=== PATIENT | female | born 2000 | race Caucasian/White ===

== ENCOUNTER 2023-02-24 17:03 | Emergency (ER) | payer OTHER ==
[~2023-02-24] VITALS: Ht 167 cm; Wt 65.7 kg
[2023-02-24] MEDS ORDERED: fentaNYL INJ 100 MCG/2 ML AMP IVP STA (17:33)
[2023-02-24] MEDS ORDERED: NS IV 1000 ML 1,000 ML IV STA (17:33)
--- NOTE | 2023-02-24 17:40 | ED Abdominal Pain ---
General Chief Complaint: Abdominal/GI Problems Stated Complaint: CHRONS DISEASE|FLARE UP Nursing Triage Note: PT PRESENTS TO ED VIA POV FROM HOME WITH COMPLAINTS OF L SIDED UPPER ABDOMINAL PAIN AND VOMITING X 1 1/2 WEEKS. PT REPORTS SHE HAS HAD ULCERS IN THE PAST AND THIS FEELS SIMILAR. Source of Information: Patient Exam Limitations: No Limitations History of Present Illness Date Seen by Provider: Feb 24, 2023 Time Seen by Provider: 17:38 Initial Comments Patient is a 22-year-old female with a history of Crohn's disease who presents the ED for abdominal pain, vomiting and diarrhea. She states about a week and a half ago started developing left upper abdominal pain. Described as sharp pain and constant. She reports vomiting with eating and several bouts of loose stool daily. Denies any blood or mucousy stool. History of Crohn's disease. She was on Humira until 2019 and stopped secondary to COVID. She is not currently following up with any type of provider such as GI specialist for her Crohn's. She reports history of ulcers she believes in her colon. Patient with a history of polyps in 2017 was diagnosed with Crohn's in 2010. No previous abdominal surgeries. Has been using a heating pad but denies of any pain medication. Currently on Keppra for epilepsy. Last episode was 2019. She denies fever, chills, bodyaches, dysuria, hematuria. Finished her menstrual cycle 3 days ago. Allergies and Home Medications Allergies Coded Allergies: No Known Drug Allergies (Unverified , 02/24/23) Patient Home Medication List Home Medication List Reviewed: Yes Metronidazole (Metronidazole) 500 Mg Tablet, 500 MG PO Q8H Prescribed by: EMILY MILTON on 02/24/231903 Ondansetron (Ondansetron Odt) 4 Mg Tab.rapdis, 4 MG SL Q4H PRN for NAUSEA/VOMITING Prescribed by: EMILY MILTON on 02/24/231903 Pantoprazole Sodium (Protonix) 40 Mg Tablet.dr, 40 MG PO DAILY Prescribed by: EMILY MILTON on 02/24/231903 Prednisone (Prednisone) 20 Mg Tab, 40 MG PO DAILY Prescribed by: EMILY MILTON on 02/24/231903 Review of Systems Review of Systems Constitutional: No chills, No diaphoresis, No fever, No malaise, No weakness EENTM: No Eye Pain Respiratory: Denies Cough Cardiovascular: Denies Chest Pain Gastrointestinal: Abdominal Pain; Denies Blood Streaked Stools; Nausea, Vomiting Genitourinary: Denies Burning, Denies Discharge Musculoskeletal: No back pain, No joint pain Skin: No change in color, No change in hair/nails Psychiatric/Neurological: Denies Anxiety, Denies Depressed All Other Systems Reviewed Negative Unless Noted: Yes Past Ltjwfbl-Olahpp-Lmcyfw Hx Patient Social History Tobacco Use?: No Use of E-Cig and/or Vaping dev: Yes E-Cig or Vaping type used: Nicotine Use of E-Cig and/or Vaping Chandana: Current Everyday User Substance use?: Yes Substance type: Marijuana Substance frequency: Couple times a week Alcohol Use?: Yes Alcohol Frequency: Once in a while Pt feels they are or have been: No Past Medical History Surgery/Hospitalization HX: CHRONS, EPILEPSY Physical Exam Vital Signs Vital Signs - First Documented 02/24/23 17:13 Temp 36.6 Pulse 101 Resp 16 B/P (MAP) 121/68 (85) Pulse Ox 98 Capillary Refill : Less Than 3 Seconds Height/Weight/BMI Height: '" Weight: lbs. oz. kg; 23.00 BMI Method: General Appearance: WD/WN, no apparent distress HEENT: PERRL/EOMI, normal ENT inspection, TMs normal, pharynx normal Neck: non-tender, full range of motion, supple, normal inspection Respiratory: chest non-tender, lungs clear, normal breath sounds, no respiratory distress, no accessory muscle use Cardiovascular: regular rate, rhythm, no edema, no gallop, no JVD Gastrointestinal: normal bowel sounds, soft, no organomegaly, no pulsatile mass, tenderness (Left upper quadrant tenderness) Extremities: normal range of motion, non-tender, normal inspection, no pedal edema Back: normal inspection, no CVA tenderness Pelvic: normal external exam Neurologic/Psychiatric: 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, no motor/sensory deficits, alert, normal mood/affect, oriented x 3 Skin: normal color, warm/dry Lymphatic: no adenopathy Progress/Results/Core Measures Results/Orders Lab Results Laboratory Tests Test 02/24/23 18:01 02/24/23 18:17 Range/Units White Blood Count 10.7 4.3-11.0 10^3/uL Red Blood Count 4.29 3.80-5.11 10^6/uL Hemoglobin 12.9 11.5-16.0 g/dL Hematocrit 39 35-52 % Mean Corpuscular Volume 90 80-99 fL Mean Corpuscular Hemoglobin 30 25-34 pg Mean Corpuscular Hemoglobin Concent 33 32-36 g/dL Red Cell Distribution Width 12.6 10.0-14.5 % Platelet Count 364 130-400 10^3/uL Mean Platelet Volume 9.8 9.0-12.2 fL Immature Granulocyte % (Auto) 0 % Neutrophils (%) (Auto) 51 42-75 % Lymphocytes (%) (Auto) 39 12-44 % Monocytes (%) (Auto) 8 0-12 % Eosinophils (%) (Auto) 2 0-10 % Basophils (%) (Auto) 1 0-10 % Neutrophils # (Auto) 5.5 1.8-7.8 10^3/uL Lymphocytes # (Auto) 4.2 H 1.0-4.0 10^3/uL Monocytes # (Auto) 0.8 0.0-1.0 10^3/uL Eosinophils # (Auto) 0.2 0.0-0.3 10^3/uL Basophils # (Auto) 0.1 0.0-0.1 10^3/uL Immature Granulocyte # (Auto) 0.0 0.0-0.1 10^3/uL Sodium Level 139 135-145 MMOL/L Potassium Level 3.3 L 3.6-5.0 MMOL/L Chloride Level 107 98-107 MMOL/L Carbon Dioxide Level 22 21-32 MMOL/L Anion Gap 10 5-14 MMOL/L Blood Urea Nitrogen 7 7-18 MG/DL Creatinine 0.77 0.60-1.30 MG/DL Estimat Glomerular Filtration Rate 111 BUN/Creatinine Ratio 9 Glucose Level 98 70-105 MG/DL Calcium Level 9.5 8.5-10.1 MG/DL Corrected Calcium 9.1 8.5-10.1 MG/DL Total Bilirubin 0.7 0.1-1.0 MG/DL Aspartate Amino Transf (AST/SGOT) 10 5-34 U/L Alanine Aminotransferase (ALT/SGPT) 10 0-55 U/L Alkaline Phosphatase 55 40-136 U/L Total Protein 7.0 6.4-8.2 GM/DL Albumin 4.5 3.2-4.5 GM/DL Lipase 24 8-78 U/L Urine Color ORANGE Urine Clarity CLOUDY Urine pH 6.0 5-9 Urine Specific [place] 1.025 H 1.016-1.022 Urine Protein NEGATIVE NEGATIVE Urine Glucose (UA) NEGATIVE NEGATIVE Urine Ketones NEGATIVE NEGATIVE Urine Nitrite NEGATIVE NEGATIVE Urine Bilirubin 1+ H NEGATIVE Urine Urobilinogen 0.2 < = 1.0 MG/DL Urine Leukocyte Esterase NEGATIVE NEGATIVE Urine RBC (Auto) NEGATIVE NEGATIVE Urine RBC NONE /HPF Urine WBC 2-5 /HPF Urine Squamous Epithelial Cells 2-5 /HPF Urine Crystals NONE /LPF Urine Bacteria FEW H /HPF Urine Casts NONE /LPF Urine Mucus MODERATE H /LPF Urine Culture Indicated YES Urine Test NEGATIVE NEGATIVE My Orders Orders - KEMAR GILBERT Cbc With Automated Diff (02/24/23 17:33) Comprehensive Metabolic Panel (02/24/23 17:33) Lipase (02/24/23 17:33) Ns Iv 1000 Ml (Sodium Chloride 0.9%) (02/24/23 17:33) Ondansetron Injection (Zofran Injectio (02/24/23 17:45) Fentanyl Inj (Sublimaze Injection) (02/24/23 17:33) Ct Abdomen/Pelvis W (02/24/23 17:33) Methylprednisolone Sod Succ (Solu-Medrol (02/24/23 17:45) Ua Culture If Indicated (02/24/23 17:50) Hcg,Qualitative Urine (02/24/23 17:50) Urine Culture (02/24/23 18:17) Iohexol Injection (Omnipaque 350 Mg/Ml 1 (02/24/23 18:45) Ns (Ivpb) (Sodium Chloride 0.9% Ivpb Bag (02/24/23 18:45) Potassium Chloride (Tablet) (K Dur Table (02/24/23 19:15) Potassium Chloride (Tablet) (K Dur Table (02/24/23 19:13) Medications Given in ED Current Medications Medications Dose Ordered Sig/Jesus Route Start Time Stop Time Status Last Admin Dose Admin Iohexol 100 ml ONCE ONCE IV 02/24/23 18:45 02/24/23 18:46 DC 02/24/23 18:42 75 ML Methylprednisolone Sodium Succinate 62.5 mg ONCE ONCE IVP 02/24/23 17:45 02/24/23 17:46 DC 02/24/23 17:53 62.5 MG Ondansetron HCl 4 mg ONCE ONCE IVP 02/24/23 17:45 02/24/23 17:46 DC 02/24/23 17:54 4 MG Potassium Chloride 20 meq ONCE ONCE PO 02/24/23 19:15 02/24/23 19:16 DC 02/24/23 19:16 20 MEQ Sodium Chloride 100 ml ONCE ONCE IV 02/24/23 18:45 02/24/23 18:46 DC 02/24/23 18:42 80 ML Vital Signs/I&O 02/24/23 02/24/23 17:13 19:20 Temp 36.6 Pulse 101 58 Resp 16 16 B/P (MAP) 121/68 (85) 115/58 Pulse Ox 98 98 Blood Pressure Mean: 85 Departure Communication (PCP) Patient is a 22-year-old female presents ED with left upper abdominal pain with vomiting and diarrhea for the past week and a half. History of Crohn's. Not currently on any medication. Patient on arrival no acute distress. She is tender in her left upper quadrant. Negative right upper quadrant tenderness. History of ulcers according to patient. She has been on Humira in the past but stopped in 2019 because of covid. Does not follow-up with a GI specialist at this time. Due to current complaint CBC, CMP, lipase, urinalysis, CT abdomen and pelvis. Concerning for Crohn's flare, gastritis, peptic ulcer disease, colitis, acute cholecystitis. CBC, CMP grossly unremarkable. Potassium 3.3. Patient was given oral potassium 20 mill equivalent. patient urinalysis negative for infection or . She was given dose of fentanyl with improvement of pain. CT abdomen pelvis negative for acute abnormality. She is able to tolerate some fluid. suspicious for gastritis versus ulcer of the stomach with location of pain. However due to the diarrhea would be concerning for Crohn's. Could have some form of mild Crohn's flare but no changes noted on CT scan. She states this feels very similar to when she had an ulcer and Crohn's flare up. She did get Solu-Medrol 60 mg here in the ED. We will taper 40 mg over the next 4 days. Discussed Flagyl 500 mg every 8 hours for the next 10 days that would help for remission if this is the case and Protonix for potential ulcer. Zofran for nausea. Discussed clear liquid diet at this time. Patient does not appear toxic and currently pain-free. Would likely benefit with an upper EGD and colonoscopy for further evaluation. Provided Dr. Cooper general surgery to follow-up with.. Impression Primary Impression: Abdominal pain Disposition: HOME, SELF-CARE Condition: Stable Departure-Patient Inst. Decision time for Depature: 19:01 Referrals: NO,LOCAL PHYSICIAN (PCP) Primary Care Physician CECILE COOPER MD Patient Instructions: Crohn's Disease Diet Add. Discharge Instructions: Recommend liquid diet until symptoms improved. Take antibiotics and medication as prescribed. Recommend following up with general surgeon for further evaluation with scope All discharge instructions reviewed with patient and/or family. Voiced understanding. Scripts Ondansetron (Ondansetron Odt) 4 Mg Tab.rapdis 4 MG SL Q4H PRN for NAUSEA/VOMITING, #8 TAB Prov: KEMAR GILBERT 02/24/23 Pantoprazole Sodium (Protonix) 40 Mg Tablet.dr 40 MG PO DAILY, #14 TAB Prov: KEMAR GILBERT 02/24/23 Metronidazole (Metronidazole) 500 Mg Tablet 500 MG PO Q8H for 10 Days, #30 TAB Prov: KEMAR GILBERT 02/24/23 Prednisone (Prednisone) 20 Mg Tab 40 MG PO DAILY for 4 Days, #8 TAB Prov: KEMAR GILBERT 02/24/23 KEMAR GILBERT Feb 24, 2023 17:40
[2023-02-24] MEDS ORDERED: ONDANSETRON 4 MG/2 ML (SDV) Z0FRAN IVP ONE (17:45)
[2023-02-24] MEDS ORDERED: methylPREDNISolone 125 MG (Solu-MEDROL) VIAL IVP ONE (17:45)
[2023-02-24 18:07] LABS: BASOPHILS # (AUTO) 0.1 10^3/uL (0.0-0.1); BASOPHILS % (AUTO) 1 % (0-10); EOSINOPHILS # (AUTO) 0.2 10^3/uL (0.0-0.3); EOSINOPHILS % (AUTO) 2 % (0-10); HEMATOCRIT 39 % (35-52); HEMOGLOBIN 12.9 g/dL (11.5-16.0); LYMPHOCYTES # (AUTO) 4.2 10^3/uL (1.0-4.0); LYMPHOCYTES % (AUTO) 39 % (12-44); MEAN CORPUSCULAR HEMOGLOBIN 30 pg (25-34); MEAN CORPUSCULAR HGB CONC 33 g/dL (32-36); MEAN CORPUSCULAR VOLUME 90 fL (80-99); MEAN PLATELET VOLUME 9.8 fL (9.0-12.2); MONOCYTES # (AUTO) 0.8 10^3/uL (0.0-1.0); MONOCYTES % (AUTO) 8 % (0-12); NEUTROPHILS # (AUTO) 5.5 10^3/uL (1.8-7.8); NEUTROPHILS % (AUTO) 51 % (42-75); PLATELET COUNT 364 10^3/uL (130-400); WHITE BLOOD COUNT 10.7 10^3/uL (4.3-11.0)
[2023-02-24 18:17] LABS: ALBUMIN 4.5 GM/DL (3.2-4.5); POTASSIUM 3.3 MMOL/L (3.6-5.0)
[2023-02-24 18:18] LABS: CALCIUM 9.5 MG/DL (8.5-10.1)
[2023-02-24 18:20] LABS: BILIRUBIN,URINE 1+ (NEGATIVE); CLARITY,URINE CLOUDY; COLOR,URINE ORANGE; GLUCOSE, URINE (UA) NEGATIVE (NEGATIVE); KETONES,URINE NEGATIVE (NEGATIVE); LEUKOCYTE ESTERASE ,URINE NEGATIVE (NEGATIVE); NITRITE,URINE NEGATIVE (NEGATIVE); PROTEIN,URINE NEGATIVE (NEGATIVE)
[2023-02-24 18:21] LABS: BILIRUBIN,TOTAL 0.7 MG/DL (0.1-1.0)
[2023-02-24 18:23] LABS: CREATININE SERUM 0.77 MG/DL (0.60-1.30)
[2023-02-24 18:30] LABS: BACTERIA,URINE FEW /HPF
[2023-02-24] MEDS ORDERED: IOHEXOL 350 MG/ML 100 ML (OMNIPAQUE 350) VIAL IV ONE (18:45)
[2023-02-24] MEDS ORDERED: NS 100 ML (IVPB) BAG IV ONE (18:45)
--- NOTE | 2023-02-24 18:47 | Diagnostic Imaging Report ---
PROCEDURE: CT abdomen and pelvis with contrast. TECHNIQUE: Multiple contiguous axial images were obtained through the abdomen and pelvis after administration of intravenous contrast. Auto Exposure Controls were utilized during the CT exam to meet ALARA standards for radiation dose reduction. All CT scans use one or more of the following dose optimizing techniques: automated exposure control, MA and/or KvP adjustment based on patient size and exam type or iterative reconstruction. INDICATION: Left upper quadrant pain. FINDINGS: Lung bases are clear. The liver is unremarkable. Portal vein is patent. Gallbladder appears normal. Pancreas appears normal. Spleen is not enlarged. Kidneys and adrenals appear normal. Small bowel is not dilated. There is no evidence of appendicitis. Colon is unremarkable. Uterus and ovaries are unremarkable. There is no intraperitoneal free air or free fluid. IMPRESSION: No acute abnormality seen in the abdomen or pelvis. Dictated by: Dictated on workstation # [id number]
[2023-02-24] MEDS ORDERED: ONDA4TAB11 SL (19:04)
[2023-02-24] MEDS ORDERED: PANT40TA2 PO (19:04)
[2023-02-24] MEDS ORDERED: METR-145 PO (19:04)
[2023-02-24] MEDS ORDERED: PRD20T PO (19:04)
[2023-02-24] MEDS ORDERED: KCL 20 MEQ TAB (K-DUR) PO ONE ×2 (19:13→19:15)
[2023-02-24 19:20] VITALS: BP 115/58
== END 2023-02-24 19:20 | disposition home or self-care (01) ==
LOC: ER 17:06
DX: R10.12 Left upper quadrant pain (principal); R11.2 Nausea with vomiting, unspecified; R19.7 Diarrhea, unspecified; G40.909 Epilepsy, unspecified, not intractable, without status epilepticus; F17.290 Nicotine dependence, other tobacco product, uncomplicated; Z86.16 Personal history of COVID-19; Z79.899 Other long term (current) drug therapy
CPT/HCPCS: 36415; 74177; 80053; 81000; 83690; 84703; 85025; 87088

== ENCOUNTER 2023-03-11 05:35 | Outpatient (CLI) | payer OTHER ==
[~2023-03-11] VITALS: Ht 167.6 cm; Wt 62.1 kg
[~2023-03-11 05:35] MED LIST: METR-145 PO; ONDA4TAB11 SL; PANT40TA2 PO; PRD20T PO
[2023-03-12] MEDS ORDERED: LEVE750T5 PO (11:07)
== END 2023-03-12 11:11 | disposition home or self-care (01) ==
LOC: PREOP 05:35
PROVIDERS: ATTEND Surgery
DX: Z01.818 Encounter for other preprocedural examination (principal)

== ENCOUNTER 2023-03-14 14:46 | Emergency (ER) | payer OTHER ==
[~2023-03-14] VITALS: Ht 167 cm; Wt 62.9 kg
[~2023-03-14 14:46] MED LIST changes: +LEVE750T5 PO
[2023-03-14 15:09] LABS: BILIRUBIN,URINE NEGATIVE (NEGATIVE); CLARITY,URINE CLEAR; COLOR,URINE YELLOW; GLUCOSE, URINE (UA) NEGATIVE (NEGATIVE); KETONES,URINE NEGATIVE (NEGATIVE); LEUKOCYTE ESTERASE ,URINE NEGATIVE (NEGATIVE); NITRITE,URINE NEGATIVE (NEGATIVE); PROTEIN,URINE NEGATIVE (NEGATIVE)
[2023-03-14 15:21] LABS: BACTERIA,URINE MODERATE /HPF; RBC,URINE 0-2 /HPF; WBC,URINE 0-2 /HPF
[2023-03-14] MEDS ORDERED: HYOSCYAMINE 0.125 MG (LEVSIN) TAB SL ONE (15:30)
[2023-03-14] MEDS ORDERED: LACTATED RINGERS 1,000 ML IV ONE (15:30)
[2023-03-14] MEDS ORDERED: ONDANSETRON 4 MG/2 ML (SDV) Z0FRAN IVP ONE (15:30)
[2023-03-14 15:38] LABS: BASOPHILS # (AUTO) 0.1 10^3/uL (0.0-0.1); BASOPHILS % (AUTO) 1 % (0-10); EOSINOPHILS # (AUTO) 0.1 10^3/uL (0.0-0.3); EOSINOPHILS % (AUTO) 1 % (0-10); HEMATOCRIT 37 % (35-52); HEMOGLOBIN 12.5 g/dL (11.5-16.0); LYMPHOCYTES # (AUTO) 2.3 10^3/uL (1.0-4.0); LYMPHOCYTES % (AUTO) 24 % (12-44); MEAN CORPUSCULAR HEMOGLOBIN 30 pg (25-34); MEAN CORPUSCULAR HGB CONC 34 g/dL (32-36); MEAN CORPUSCULAR VOLUME 90 fL (80-99); MONOCYTES # (AUTO) 0.8 10^3/uL (0.0-1.0); MONOCYTES % (AUTO) 8 % (0-12); NEUTROPHILS # (AUTO) 6.3 10^3/uL (1.8-7.8); NEUTROPHILS % (AUTO) 66 % (42-75); PLATELET COUNT 298 10^3/uL (130-400); WHITE BLOOD COUNT 9.6 10^3/uL (4.3-11.0)
--- NOTE | 2023-03-14 15:52 | ED Abdominal Pain ---
General Chief Complaint: Abdominal/GI Problems Stated Complaint: AB PAIN Nursing Triage Note: pt presents to ed via pov from home with complaints of continued n/v/d since she was seen 2 weeks ago in ed. pt reports she has a gi scope scheduled for wednesday with dr quiles. Source of Information: Patient, Old Records Exam Limitations: No Limitations History of Present Illness Date Seen by Provider: March 14, 2023 Time Seen by Provider: 14:50 Initial Comments This 22-year-old young lady with Crohn's disease presents to the emergency room with complaints of persistent abdominal and GI issues over the past month. She has had persistently watery stools. She has not had a solid stool in many days. She has terrible abdominal cramping. She has presumed herself to have constipation or a partial bowel obstruction and has been taking laxatives. She has endoscopy scheduled with Dr. Quiles on Wednesday of this week. She has very painful gas and bloating. She denies any blood in her stool but does have increased mucus. She has accompanying nausea and vomiting. She has had sweats but denies fever. She was diagnosed with Crohn's disease in 2010. She does not currently take any maintenance medication. She rarely drinks alcohol. She vapes nicotine. She uses marijuana once or twice a month. Her last use was about 4 days ago. She was seen in this ER February 24 with a relatively unremarkable work-up. CT was negative for acute problems. She was prescribed prednisone, Flagyl, pantoprazole, and Zofran. These treatments did help but symptoms have rebounded since running out of these medications. She is not on any maintenance therapies for Crohn's disease but used to take Humira. Allergies and Home Medications Allergies Coded Allergies: No Known Drug Allergies (Unverified , 02/24/23) Patient Home Medication List Home Medication List Reviewed: Yes Hyoscyamine Sulfate (Levsin-Sl) 0.125 Mg Tab.subl, 1-2 TAB SL Q4H PRN for CRAMPS Prescribed by: AMENA HIGHTOWER on 03/14/231814 Levetiracetam (Levetiracetam) 750 Mg Tablet, 750 MG PO DAILY, (Reported) Entered as Reported by: LEONID MAX on 03/12/23 1107 Ondansetron (Ondansetron Odt) 4 Mg Tab.rapdis, 4 MG SL Q4H PRN for NAUSEA/VOMITING Prescribed by: EMILY MILTON on 02/24/231903 Ondansetron (Ondansetron Odt) 4 Mg Tab.rapdis, 4 MG SL Q4H PRN for NAUSEA/VOMITING Prescribed by: AMENA HIGHTOWER on 03/14/231814 Pantoprazole Sodium (Protonix) 40 Mg Tablet.dr, 40 MG PO DAILY Prescribed by: EMILY MILTON on 02/24/231903 Pantoprazole Sodium (Protonix) 40 Mg Tablet.dr, 40 MG PO BID Prescribed by: AMENA HIGHTOWER on 03/14/231814 Sucralfate (Carafate) 1 Gram/10 Ml Oral.susp, 1 GM PO QID Prescribed by: AMENA HIGHTOWER on 03/14/231824 Discontinued Medications Metronidazole (Metronidazole) 500 Mg Tablet, 500 MG PO Q8H Discontinued Reason: No Longer Taking Prescribed by: EMILY MILTON on 02/24/231903 Prednisone (Prednisone) 20 Mg Tab, 40 MG PO DAILY Discontinued Reason: No Longer Taking Prescribed by: EMILY MILTON on 02/24/231903 Review of Systems Review of Systems Constitutional: no symptoms reported EENTM: No Symptoms Reported Respiratory: No Symptoms Reported Cardiovascular: No Symptoms Reported Gastrointestinal: See HPI Genitourinary: No Symptoms Reported Musculoskeletal: no symptoms reported Skin: no symptoms reported Psychiatric/Neurological: No Symptoms Reported Endocrine: No Symptoms Reported Hematologic/Lymphatic: No Symptoms Reported Past Zhrdvdb-Pwhnxz-Dzgyyb Hx Patient Social History Tobacco Use?: No Use of E-Cig and/or Vaping dev: Yes E-Cig or Vaping type used: Nicotine Use of E-Cig and/or Vaping Chandana: Current Everyday User Substance use?: Yes Substance type: Marijuana Alcohol Use?: No Pt feels they are or have been: No Immunizations Up To Date First/Initial COVID19 Vaccinat: YES Second COVID19 Vaccination Po: YES Third COVID19 Vaccination Date: NO Seasonal Allergies Seasonal Allergies: No Past Medical History Surgery/Hospitalization HX: CHRONS, EPILEPSY Surgeries: No Respiratory: No Cardiac: No Neurological: Yes Seizure Disorder : No Reproductive Disorders: No Genitourinary: No Gastrointestinal: Yes Crohns Disease Musculoskeletal: No Endocrine: No HEENT: No Cancer: No Psychosocial: Yes Depression Integumentary: No Blood Disorders: No Physical Exam Vital Signs Vital Signs - First Documented 03/14/23 14:57 Temp 36.6 Pulse 99 Resp 16 B/P (MAP) 102/66 (78) Pulse Ox 97 Capillary Refill : Height/Weight/BMI Height: '" Weight: lbs. oz. kg; 22.00 BMI Method: General Appearance: WD/WN, mild distress HEENT: normal ENT inspection, other (Oropharynx somewhat dry) Neck: normal inspection Respiratory: lungs clear, normal breath sounds, no respiratory distress Cardiovascular: regular rate, rhythm, no edema, no murmur Gastrointestinal: soft, abnormal bowel sounds (Decreased); No distended; tenderness (Mild generalized pain and more prominent pain in the epigastrium and left upper quadrant) Extremities: normal inspection, no pedal edema Neurologic/Psychiatric: no motor/sensory deficits, alert, normal mood/affect, oriented x 3 Skin: normal color, warm/dry Progress/Results/Core Measures Results/Orders Lab Results Laboratory Tests Test 03/14/23 15:02 03/14/23 15:30 Range/Units Urine Color YELLOW Urine Clarity CLEAR Urine pH 6.0 5-9 Urine Specific [place] 1.020 1.016-1.022 Urine Protein NEGATIVE NEGATIVE Urine Glucose (UA) NEGATIVE NEGATIVE Urine Ketones NEGATIVE NEGATIVE Urine Nitrite NEGATIVE NEGATIVE Urine Bilirubin NEGATIVE NEGATIVE Urine Urobilinogen 0.2 < = 1.0 MG/DL Urine Leukocyte Esterase NEGATIVE NEGATIVE Urine RBC (Auto) TRACE-I H NEGATIVE Urine RBC 0-2 /HPF Urine WBC 0-2 /HPF Urine Squamous Epithelial Cells 2-5 /HPF Urine Crystals NONE /LPF Urine Bacteria MODERATE H /HPF Urine Casts NONE /LPF Urine Mucus NEGATIVE /LPF Urine Culture Indicated YES Urine Opiates Screen NEGATIVE NEGATIVE Urine Oxycodone Screen NEGATIVE NEGATIVE Urine Methadone Screen NEGATIVE NEGATIVE Urine Propoxyphene Screen NEGATIVE NEGATIVE Urine Barbiturates Screen NEGATIVE NEGATIVE Ur Tricyclic Antidepressants Screen NEGATIVE NEGATIVE Urine Phencyclidine Screen NEGATIVE NEGATIVE Urine Amphetamines Screen NEGATIVE NEGATIVE Urine Methamphetamines Screen NEGATIVE NEGATIVE Urine Benzodiazepines Screen NEGATIVE NEGATIVE Urine Cocaine Screen NEGATIVE NEGATIVE Urine Cannabinoids Screen POSITIVE H NEGATIVE White Blood Count 9.6 4.3-11.0 10^3/uL Red Blood Count 4.14 3.80-5.11 10^6/uL Hemoglobin 12.5 11.5-16.0 g/dL Hematocrit 37 35-52 % Mean Corpuscular Volume 90 80-99 fL Mean Corpuscular Hemoglobin 30 25-34 pg Mean Corpuscular Hemoglobin Concent 34 32-36 g/dL Red Cell Distribution Width 12.4 10.0-14.5 % Platelet Count 298 130-400 10^3/uL Mean Platelet Volume 10.0 9.0-12.2 fL Immature Granulocyte % (Auto) 0 % Neutrophils (%) (Auto) 66 42-75 % Lymphocytes (%) (Auto) 24 12-44 % Monocytes (%) (Auto) 8 0-12 % Eosinophils (%) (Auto) 1 0-10 % Basophils (%) (Auto) 1 0-10 % Neutrophils # (Auto) 6.3 1.8-7.8 10^3/uL Lymphocytes # (Auto) 2.3 1.0-4.0 10^3/uL Monocytes # (Auto) 0.8 0.0-1.0 10^3/uL Eosinophils # (Auto) 0.1 0.0-0.3 10^3/uL Basophils # (Auto) 0.1 0.0-0.1 10^3/uL Immature Granulocyte # (Auto) 0.0 0.0-0.1 10^3/uL Sodium Level 138 135-145 MMOL/L Potassium Level 3.5 L 3.6-5.0 MMOL/L Chloride Level 107 98-107 MMOL/L Carbon Dioxide Level 20 L 21-32 MMOL/L Anion Gap 11 5-14 MMOL/L Blood Urea Nitrogen 7 7-18 MG/DL Creatinine 0.70 0.60-1.30 MG/DL Estimat Glomerular Filtration Rate 125 BUN/Creatinine Ratio 10 Glucose Level 90 70-105 MG/DL Calcium Level 9.0 8.5-10.1 MG/DL Corrected Calcium 9.0 8.5-10.1 MG/DL Total Bilirubin 0.4 0.1-1.0 MG/DL Aspartate Amino Transf (AST/SGOT) 11 5-34 U/L Alanine Aminotransferase (ALT/SGPT) 9 0-55 U/L Alkaline Phosphatase 39 L 40-136 U/L C-Reactive Protein High Sensitivity 0.25 0.00-0.50 MG/DL Total Protein 6.4 6.4-8.2 GM/DL Albumin 4.0 3.2-4.5 GM/DL Lipase 21 8-78 U/L Serum Test, Qualitative NEGATIVE NEGATIVE Serum Alcohol < 10 <10 MG/DL My Orders Orders - AMENA GONZALES MD Alcohol (03/14/23 15:21) Cbc With Automated Diff (03/14/23 15:21) Comprehensive Metabolic Panel (03/14/23 15:21) Hs C Reactive Protein (03/14/23 15:21) Drug Screen Stat (Urine) (03/14/23 15:21) Hcg,Qualitative Serum (03/14/23 15:21) Lipase (03/14/23 15:21) Ed Iv/Invasive Line Start (03/14/23 15:21) Lactated Ringers (Lr 1000 Ml Iv Solution (03/14/23 15:30) Hyoscyamine Sl Tablet (Levsin Sl Tablet) (03/14/23 15:30) Ondansetron Injection (Zofran Injectio (03/14/23 15:30) Lidocaine 2% Viscous 15 Ml (Xylocaine Vi (03/14/23 17:00) Antacid Suspension (Mylanta Suspension (03/14/23 17:00) Pantoprazole Injection (Protonix Injecti (03/14/23 17:00) Abdomen, Flat & Upright/Decub (03/14/23 16:55) Medications Given in ED Current Medications Medications Dose Ordered Sig/Jesus Route Start Time Stop Time Status Last Admin Dose Admin Al Hydrox/Mg Hydrox/Simethicone 30 ml ONCE ONCE PO 03/14/23 17:00 03/14/23 17:01 DC 03/14/23 17:07 30 ML Hyoscyamine Sulfate 0.25 mg ONCE ONCE SL 03/14/23 15:30 03/14/23 15:31 DC 03/14/23 15:36 0.25 MG Lactated Ringer's 1,000 ml @ 0 mls/hr Q0M ONCE IV 03/14/23 15:30 03/14/23 15:31 DC 03/14/23 15:36 0 MLS/HR Lidocaine HCl 15 ml ONCE ONCE PO 03/14/23 17:00 03/14/23 17:01 DC 03/14/23 17:07 15 ML Ondansetron HCl 8 mg ONCE ONCE IVP 03/14/23 15:30 03/14/23 15:31 DC 03/14/23 15:36 8 MG Pantoprazole 40 mg ONCE ONCE IV 03/14/23 17:00 03/14/23 17:01 DC 03/14/23 17:07 40 MG Vital Signs/I&O 03/14/23 03/14/23 14:57 18:38 Temp 36.6 Pulse 99 71 Resp 16 18 B/P (MAP) 102/66 (78) 101/62 Pulse Ox 97 98 Blood Pressure Mean: 78 Progress Progress Note : Progress Note Labs were obtained and reviewed and interpreted in their entirety by me including CBC, CMP, CRP, lipase, urinalysis. These labs were unremarkable. Toxicology screen was positive for cannabinoids. Patient was treated with IV fluids, Zofran, Protonix, and GI cocktail with notable improvement. Significant treatment with GI cocktail suggests there is a component of esophageal and/or gastric irritation or ulcers. Aggressive PPI therapy along with Carafate therapy was recommended. She can discuss further treatment with Dr. Quiles at the time of her endoscopy. Dietary restrictions were discussed. See discharge instructions for further discussion. KUB and upright x-ray revealed no evidence of constipation or air-fluid levels to suggest obstruction. X-ray was interpreted by me and radiologist report was also reviewed and concurred with my interpretation. Diagnostic Imaging Diagonstic Imaging: Xray Plain Films/CT/US/NM/MRI: abdomen, pelvis Comments NAME: DORA MALDONADO MED REC#: [id number] PT STATUS: REG ER : 2000 PHYSICIAN: AMENA GONZALES MD ADMIT DATE: 03/14/23/ER Signed Date of Exam:03/14/23 ABDOMEN, FLAT & UPRIGHT/DECUB INDICATION: Nausea, vomiting and diarrhea. COMPARISON: CT of the abdomen and pelvis 02/24/2023. FINDINGS: Lung bases are clear. There is no pneumonia or edema. There is no finding of abnormal bowel dilation present. There is no evidence of obstruction. There is no finding of free air or air-fluid levels. There is no unexpected abdominal calcification. There are some stable phleboliths within the left pelvis. There is dextroscoliosis. There is no acute osseous abnormality. IMPRESSION: Nonobstructed bowel gas pattern without air-fluid levels or free air. Dictated by: Dictated on workstation # [id number] Dict: 03/14/231717 Trans: 03/14/231730 [id number] Interpreted by: SHARAN CHARLES MD Electronically signed by: SHARAN CHARLES MD 03/14/231730 Departure Impression Primary Impression: Left upper quadrant pain Additional Impressions: Nausea & vomiting Qualified Codes: R11.2 - Nausea with vomiting, unspecified Crohn's disease Qualified Codes: K50.919 - Crohn's disease, unspecified, with unspecified complications Disposition: HOME, SELF-CARE Condition: Improved Departure-Patient Inst. Decision time for Depature: 18:06 Referrals: ELOISA ANDERSON MD (PCP/Family) Primary Care Physician Patient Instructions: Abdominal Pain, Adult ED, Crohn's Disease (DC), Gastritis ED Add. Discharge Instructions: Please follow through with endoscopy with Dr. Quiles later this week. Start with a noncarbonated clear liquid diet and gradually advance your diet with small quantities of bland food as tolerated. Start Protonix twice daily as prescribed. Start Carafate (sucralfate) as prescribed take 30 minutes before mealtimes and again before bed. If the liquid formulation is cost prohibitive, you may use the tablet form. Tablet form should be chewed and swallowed or crushed and m ixed with a small amount of water to make a slurry. It should be crushed easily between 2 spoons. Avoid the following: Eating large meals, eating close to bedtime, caffeine, carbonation, chocolate, citrus fruits and juices, tomato products, mints, alcohol, tobacco, THC products, spicy foods, fatty/greasy foods, NSAID medications such as ibuprofen or naproxen, and anything else you know irritates your stomach. You do not appear to have constipation at this time. Do not use any more laxatives. Laxatives may worsen your bowel cramping. Use the Zofran (ondansetron) as prescribed for nausea vomiting. Use Levsin (hyoscyamine) as prescribed for bowel cramping and/or diarrhea. Return to the emergency room if you have worsening symptoms despite following these instructions. All discharge instructions reviewed with patient and/or family. Voiced understanding. Scripts Sucralfate (Carafate) 1 Gram/10 Ml Oral.susp 1 GM PO QID, #1200 ML Take 30 min before eating/drinking at meals and before bed. May sub tabs if liquid not available. Crush and slurry tabs in 5-10 mL water. Prov: AMENA GONZALES MD 03/14/23 Pantoprazole Sodium (Protonix) 40 Mg Tablet.dr 40 MG PO BID, #60 TAB Prov: AMENA GONZALES MD 03/14/23 Ondansetron (Ondansetron Odt) 4 Mg Tab.rapdis 4 MG SL Q4H PRN for NAUSEA/VOMITING, #10 TAB 1 Refill Prov: AMENA GONZALES MD 03/14/23 Hyoscyamine Sulfate (Levsin-Sl) 0.125 Mg Tab.subl 1-2 TAB SL Q4H PRN for CRAMPS, #10 TAB 1 Refill Prov: AMENA GONZALES MD 03/14/23 Copy Copies To 1: CECILE QUILES MD Copies To 2: ELOISA ANDERSON MD, JOSHUA T MD March 14, 2023 15:52
[2023-03-14 15:53] LABS: CHLORIDE 107 MMOL/L (98-107); POTASSIUM 3.5 MMOL/L (3.6-5.0); SODIUM 138 MMOL/L (135-145)
[2023-03-14 15:55] LABS: GLUCOSE 90 MG/DL (70-105); TOTAL PROTEIN 6.4 GM/DL (6.4-8.2)
[2023-03-14 15:56] LABS: CARBON DIOXIDE 20 MMOL/L (21-32)
[2023-03-14 15:57] LABS: BILIRUBIN,TOTAL 0.4 MG/DL (0.1-1.0)
[2023-03-14 15:59] LABS: ALKALINE PHOSPHATASE 39 U/L (40-136); GFR ESTIMATED 125
[2023-03-14 16:00] LABS: BUN/CREATININE RATIO 10
[2023-03-14 16:02] LABS: ALANINE AMINOTRANSFERASE 9 U/L (0-55); LIPASE 21 U/L (8-78)
[2023-03-14] MEDS ORDERED: ANTACID SUSP 30 ML UDC (MYLANTA) PO ONE (17:00)
[2023-03-14] MEDS ORDERED: LIDOCAINE 2% VISCOUS 15 ML UDC PO ONE (17:00)
[2023-03-14] MEDS ORDERED: PANTOPRAZOLE 40 MG (PROTONIX) VIAL IV ONE (17:00)
[2023-03-14 17:06] LABS: AMPHETAMINE SCREEN, URINE NEGATIVE (NEGATIVE); BARBITURATE SCREEN URINE NEGATIVE (NEGATIVE); BENZODIAZEPINES SCREEN URINE NEGATIVE (NEGATIVE); CANNABINOID SCREEN, URINE POSITIVE (NEGATIVE); COCAINE SCREEN URINE NEGATIVE (NEGATIVE); METHADONE STAT NEGATIVE (NEGATIVE); OPIATE SCREEN URINE NEGATIVE (NEGATIVE); OXYCODONE STAT NEGATIVE (NEGATIVE); PROPOXYPHENE STAT NEGATIVE (NEGATIVE); TRICYCLIC ANTIDEPRESSANTS SCRE NEGATIVE (NEGATIVE)
--- NOTE | 2023-03-14 17:22 | Diagnostic Imaging Report ---
INDICATION: Nausea, vomiting and diarrhea. COMPARISON: CT of the abdomen and pelvis 02/24/2023. FINDINGS: Lung bases are clear. There is no pneumonia or edema. There is no finding of abnormal bowel dilation present. There is no evidence of obstruction. There is no finding of free air or air-fluid levels. There is no unexpected abdominal calcification. There are some stable phleboliths within the left pelvis. There is dextroscoliosis. There is no acute osseous abnormality. IMPRESSION: Nonobstructed bowel gas pattern without air-fluid levels or free air. Dictated by: Dictated on workstation # [id number]
[2023-03-14] MEDS ORDERED: PANT40TA2 PO (18:15)
[2023-03-14] MEDS ORDERED: HYOS0.1283 SL (18:15)
[2023-03-14] MEDS ORDERED: ONDA4TAB11 SL (18:15)
[2023-03-14] MEDS ORDERED: SUCR1ORA5 PO (18:25)
[2023-03-14 18:38] VITALS: BP 101/62
== END 2023-03-14 18:38 | disposition home or self-care (01) ==
LOC: EDUNIT# 14:46 → ER 14:48
DX: K50.90 Crohn's disease, unspecified, without complications (principal); F17.290 Nicotine dependence, other tobacco product, uncomplicated; Z79.620 Long term (current) use of immunosuppressive biologic
CPT/HCPCS: 36415; 74019; 80053; 80306; 80320; 81000; 83690; 84703; 85025; 86141; 87088

== ENCOUNTER 2023-03-17 12:13 | Day surgery (SDC) | payer OTHER ==
[~2023-03-17] VITALS: Ht 167.6 cm; Wt 62.9 kg
[~2023-03-17 12:13] MED LIST changes: +HYOS0.1283 SL; +SUCR1ORA5 PO
[2023-03-17] MEDS ORDERED: LACTATED RINGERS 1,000 ML IV STA (12:18)
[2023-03-17] MEDS ORDERED: LIDOCAINE JELLY 2% 6 ML SYRINGE MM PRN (12:30)
[2023-03-17] MEDS ORDERED: HURRICAINE EXT TUBE (BENZOCAINE) XX PRN (12:30)
[2023-03-17 12:35] VITALS: BP 109/60
--- NOTE | 2023-03-17 12:59 | Progress Note-Pre Operative ---
Pre-Operative Progress Note Date of Available H&P: March 17, 2023 Date H&P Reviewed: March 17, 2023 Time H&P Reviewed: 12:30 History & Physical: No changes noted Pre-Operative Diagnosis: abd pain, hx colon polyp, hx crohns CECILE COOPER MD March 17, 2023 12:59
[2023-03-17] MEDS ORDERED: ONDANSETRON 4 MG/2 ML (SDV) Z0FRAN IVP PRN (13:00)
[2023-03-17] MEDS ORDERED: ONDANSETRON 4 MG (ZOFRAN) ORAL DISSOLVE TAB PO PRN (13:00)
--- NOTE | 2023-03-17 13:00 | Discharge Inst-Surgical ---
D/C Lap Instructions-KENNETH Follow Up Activity as tolerated High Fiber Diet 25g or more per day Avoid Alcohol, Caffeine, Spicy [place] and Acid foods. Drink 64 fluid oz or more of fluids per day. Symptoms to Report: Fever over 101 degree F, Nausea/Vomiting If any problems/questions: Contact your physician or go to Emergency Room CECILE COOPER MD March 17, 2023 13:00
[2023-03-17] MEDS ORDERED: PROPOFOL INJECTION 50 ML IV ONE ×2 (14:51→15:45)
[2023-03-17] MEDS ORDERED: LIDOCAINE JELLY 2% 6 ML SYRINGE ONE (15:08)
[2023-03-17 15:45] VITALS: BP 99/59
[2023-03-17] MEDS ORDERED: proPOfol 200 MG/20 ML (DIPRIVAN) VIAL IV ONE (15:45)
[2023-03-17 15:50] VITALS: BP_SYST 100; BP_SYST 106; BP_DIAS 63; BP_DIAS 68
[2023-03-17 16:41] VITALS: BP 100/63
--- NOTE | 2023-03-17 17:02 | Anesthesia-General Post-Op ---
MAC Patient Condition Mental Status/LOC: Same as Preop Cardiovascular: Satisfactory Nausea/Vomiting: Absent Respiratory: Satisfactory Pain: Controlled Complications: Absent Post Op Complications Complications None Follow Up Care/Instructions Patient Instructions None needed. Anesthesiology Discharge Order Discharge Order Patient is doing well, no complaints, stable vital signs, no apparent adverse anesthesia problems. No complications reported per nursing. EDDIE TURCIOS CRNA March 17, 2023 17:02
--- NOTE | 2023-03-17 23:04 | OPERATIVE REPORT ---
DATE OF SERVICE: 03/17/2023 ATTENDING PRIMARY CARE PHYSICIAN: Pao Graham MD PREOPERATIVE DIAGNOSES: Diarrhea, mucousy stools, history of Crohn's disease, nausea and vomiting. POSTOPERATIVE DIAGNOSES: Reflux esophagitis, [place] grade B, small to moderate size hiatal hernia, 2.5 cm in size, mild to moderate gastritis, mild chronic stage II, external and internal hemorrhoids, chronic active colitis encompassing the rectosigmoid, descending colon as well as the cecum. PROCEDURE: EGD with biopsy, colonoscopy with biopsy. SURGEON: Cecile Cooper MD ANESTHESIA: Monitored anesthesia care. ESTIMATED BLOOD LOSS: Minimal. FINDINGS: Reflux esophagitis, [place] grade B, small to moderate size hiatal hernia, 2.5 cm in size, mild to moderate gastritis, mild chronic stage II, external and internal hemorrhoids, chronic active colitis encompassing the rectosigmoid, descending colon as well as the cecum. DISPOSITION: The patient tolerated the procedure well. INDICATIONS: The patient is a 22-year-old female who has been having issues with intermittent episodes of diarrhea as well as mucousy stools and associated left side abdominal pain. This has been recurrent issue since the age of 11 and she was seen at [facility] in 2010 and was diagnosed with Crohn's disease. She was on Humira; however, once COVID started, she was unable to make the [place] to [place]. She reports that she has also been on steroids with prednisone as well as Imuran in the past. Currently, she is not on any medication. Her last colonoscopy was approximately 5 years ago and she reports a benign polyp was identified. However, she also was found to be C. diff positive at this time. She also reports that she does have intermittent episodes of nausea and vomiting. This may occur after eating a meal. DESCRIPTION OF PROCEDURE: The patient was brought to the endoscopy suite and laid in the left lateral decubitus position. After adequate IV pain and sedative medications and monitored anesthesia care, the mouthpiece was applied. The endoscope was placed in the mouth, visualized the pharynx and hypopharyngeal region. Vocal cords, epiglottis and vallecula identified and appeared to be normal. The endoscope was then gently intubated in the esophageal opening and esophagus insufflated. The endoscope was then advanced into the first, second, third portions of esophagus at the level of the GE junction, a reflux esophagitis, [place] grade B identified. No ulcers or strictures identified in this region. A biopsy was taken with forceps with visualization of good hemostasis. The endoscope was then advanced into the stomach. The endoscope retroflexed visualizing a small to moderate size hiatal hernia approximately 2.5 cm in size. There was a [id number] degree of gastritis, more towards the stomach antrum, no ulcers, polyps or any neoplasms. A biopsy was taken of the antrum to rule out H. pylori with visualization of good hemostasis. Endoscope was then advanced through the pylorus and the first and second portion of the duodenum, which appeared normal. The endoscope was then slowly withdrawn while taking a second look and suctioning of residual air with no additional findings. A digital rectal examination was performed, which revealed mild chronic stage II, external and internal hemorrhoids, not actively edematous nor inflamed and no bleeding. There were no perianal manifestations of Crohn's disease. No fistulas, sinus tract or any abscesses identified. Normal sphincter tone was felt and there were no palpable masses. The endoscope was then intubated into the anus, rectum gently insufflated. The endoscope was then advanced through the valves of Moe of the rectum and at the rectosigmoid junction, a mild colitis was identified. Biopsies were taken with forceps with visualization of good hemostasis. The endoscope was then advanced into the sigmoid and descending colon, where this colitis continued and biopsies were taken of the descending colon. The transverse and ascending colon appeared to be free of any chronic inflammatory changes; however, there was some inflammation of the cecum and biopsies were taken of the cecum. The endoscope was then slowly withdrawn while taking a second look and suctioning of residual air with no additional findings. The patient tolerated the procedure well. We will recommend the necessary lifestyle and dietary accommodation, starting off with a small more frequent meals, avoidance of eating at night as well as head elevation while lying supine. If she does do a significant amount of caffeinated beverages, we will recommend moderation of this as well as spicy, greasy and acidic foods. We will have her continue with her PPI acid playground aide. At this time, it is hard to discern why she does have episodes of nausea and vomiting usually after meals; however, this may be the gallbladder etiology. We will have her follow up in 1 week to schedule her for ultrasonography of the gallbladder as well as possible HIDA scan to look for biliary dyskinesia. She will likely also need to be referred to an adult curriculum specialist for maintenance of active Crohn's disease of the colon, especially if she is significantly symptomatic at this time, it appears that her symptomatology is mild to moderate; however, again she is not on any medications for treatment of a chronic active colitis, which was identified on this colonoscopy and we will await the biopsy results. Job ID: [id number] DocumentID: [id number] Dictated Date: 03/17/2023 15:56:13 Title Clerk [employer] Date: 03/17/2023 23:02:00 Dictated By: CECILE COOPER MD
== END 2023-03-17 17:05 | disposition home or self-care (01) ==
LOC: ENDO 12:13
PROVIDERS: ATTEND Surgery
DX: K29.50 Unspecified chronic gastritis without bleeding (principal); K52.9 Noninfective gastroenteritis and colitis, unspecified; K21.00 Gastro-esophageal reflux disease with esophagitis, without bleeding; K50.90 Crohn's disease, unspecified, without complications; K44.9 Diaphragmatic hernia without obstruction or gangrene; K64.1 Second degree hemorrhoids; K64.4 Residual hemorrhoidal skin tags; F17.290 Nicotine dependence, other tobacco product, uncomplicated
CPT/HCPCS: 84703; 88305

== ENCOUNTER → 2023-04-06 | Outpatient (CLI) | payer OTHER ==
--- NOTE | 2023-04-06 10:21 | Diagnostic Imaging Report ---
PROCEDURE: US Gallbladder. TECHNIQUE: Multiple real-time grayscale images were obtained over the right upper quadrant in various projections. INDICATION: Right upper quadrant pain, nausea and vomiting EXAMINATION: Ultrasound gallbladder 04/06/2023 FINDINGS: Visualized liver unremarkable. There is no intrahepatic biliary dilatation. No focal lesions appreciated. Gallbladder wall does not appear thickened. There is no pericholecystic fluid. No stones appreciated. Common bile duct normal in size. Visualized pancreas unremarkable. Visualized aorta and IVC unremarkable. Right kidney 10.8 cm in length. There is no hydronephrosis. There is no ascites. IMPRESSION: 1. No acute process. Dictated by: Dictated on workstation # [id number]
== END ==
LOC: RAD 08:30
PROVIDERS: ATTEND Surgery
DX: R10.11 Right upper quadrant pain (principal)
CPT/HCPCS: 76705

== ENCOUNTER → 2023-05-20 | Outpatient (CLI) | payer OTHER | LOC: LAB 11:46 | PROVIDERS: ATTEND Internal Medicine Gastroenterology | DX: K50.90 Crohn's disease, unspecified, without complications (principal) | CPT/HCPCS: 36415 ==

== ENCOUNTER 2023-07-26 00:25 | Emergency (ER) | payer OTHER ==
[~2023-07-26] VITALS: Ht 167 cm; Wt 56.0 kg
[2023-07-26 00:35] VITALS: BP 101/57
--- NOTE | 2023-07-26 01:00 | ED Abdominal Pain ---
General Chief Complaint: Abdominal/GI Problems Stated Complaint: CROHNS DISEASE,POSS BOWEL OBSTRUCTION Nursing Triage Note: PATIENT AMBULATORY TO ROOM WITH COMPLAINT OF ABDOMINAL PAIN/CRAMPING. STATES CONSTIPATED X6 DAYS. HX OF CHRONS DX. HAS TAKEN STOOL SOFTNERS, INCREASED FIBER IN DIET, AND DRINKING LOTS OF WATER WITH NO RELIEF. STATES SINCE THIS HAS OCCURED PROBLEMS WITH URINATION. Source of Information: Patient Exam Limitations: No Limitations History of Present Illness Date Seen by Provider: Jul 26, 2023 Time Seen by Provider: 00:50 Initial Comments Patient is a 23you female with a history of Crohn's disease who presents to the ER with a complaint of LLQ abdominal cramping, mild nausea, no formed stool in 5-6 days. 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 She states she is concerned she has a bowel obstruction. She has never had one before. No prior abdominal surgeries. SHe is not currently on any Crohn's medications. SHe denies fever. SHe has had a hard time urinating with her constipation. She has increased the fiber in her diet and is drinking more water. LMP was end of June. no control. SHe used some miralax tonight - other than that no stool softeners or laxatives. Timing/Duration: 6-7 Days Severity/Quality: Severe, Cramping Location: LLQ Radiation: No Radiation Activities at Onset: None Associated Symptoms: Nausea/Vomiting (nausea without vomiting) Allergies and Home Medications Allergies Coded Allergies: No Known Drug Allergies (Unverified , 02/24/23) Patient Home Medication List Home Medication List Reviewed: Yes Hyoscyamine Sulfate (Levsin-Sl) 0.125 Mg Tab.subl, 1-2 TAB SL Q4H PRN for CRAMPS Prescribed by: AMENA HIGHTOWER on 03/14/231814 Levetiracetam (Levetiracetam) 750 Mg Tablet, 750 MG PO DAILY, (Reported) Entered as Reported by: LEONID MAX on 03/12/23 110 Ondansetron (Ondansetron Odt) 4 Mg Tab.rapdis, 4 MG SL Q4H PRN for NAUSEA/VOMITING Prescribed by: EMILY MILTON on 02/24/231903 Ondansetron (Ondansetron Odt) 4 Mg Tab.rapdis, 4 MG SL Q4H PRN for NAUSEA/VOMITING Prescribed by: AMENA HIGHTOWER on 03/14/231814 Pantoprazole Sodium (Protonix) 40 Mg Tablet.dr, 40 MG PO DAILY Prescribed by: EMILY MILTON on 02/24/231903 Pantoprazole Sodium (Protonix) 40 Mg Tablet.dr, 40 MG PO BID Prescribed by: AMENA HIGHTOWER on 03/14/231814 Sucralfate (Carafate) 1 Gram/10 Ml Oral.susp, 1 GM PO QID Prescribed by: AMENA HIGHTOWER on 03/14/231824 Review of Systems Review of Systems Constitutional: see HPI EENTM: No Symptoms Reported Respiratory: No Symptoms Reported Cardiovascular: No Symptoms Reported Gastrointestinal: Abdominal Pain, Constipated, Nausea Genitourinary: No Symptoms Reported Musculoskeletal: no symptoms reported Skin: no symptoms reported Psychiatric/Neurological: No Symptoms Reported Past Bmimgth-Lzbvxg-Bjbkfw Hx Immunizations Up To Date Influenza Vaccine Up-to-Date: No; Not Current First/Initial COVID19 Vaccinat: YES Second COVID19 Vaccination Po: YES Third COVID19 Vaccination Date: NO Seasonal Allergies Seasonal Allergies: No Past Medical History Surgery/Hospitalization HX: CHRONS, EPILEPSY Surgeries: No Respiratory: No Cardiac: No Neurological: Yes Seizure Disorder Reproductive Disorders: No Genitourinary: No Gastrointestinal: Yes Crohns Disease Musculoskeletal: No Endocrine: No HEENT: No Cancer: No Psychosocial: Yes Depression Integumentary: No Blood Disorders: No Physical Exam Vital Signs Vital Signs - First Documented 07/26/23 00:35 Temp 37.0 Pulse 73 Resp 18 B/P (MAP) 101/57 (72) Pulse Ox 96 O2 Delivery Room Air Capillary Refill : Less Than 3 Seconds Height/Weight/BMI Height: '" Weight: lbs. oz. kg; 20.00 BMI Method: General Appearance: WD/WN, no apparent distress, thin HEENT: PERRL/EOMI Respiratory: lungs clear, normal breath sounds, no respiratory distress, no accessory muscle use Cardiovascular: regular rate, rhythm Gastrointestinal: soft, abnormal bowel sounds (hypoactive), tenderness (mild left lower quadrant tenderness with (likely) palpable stool in the left lower abdomen) Rectal: other (small non thrombosed external hemorrhoid. Large amount of solid stool noted high in the rectum. I attempted to manually remove but was unable. No other palpable masses. no blood.) Extremities: normal range of motion, normal inspection Back: normal inspection Neurologic/Psychiatric: alert, normal mood/affect (anxious), oriented x 3 Skin: normal color, warm/dry Progress/Results/Core Measures Results/Orders My Orders Orders - TATI ZAMORA MD Abdomen/Kub 1[place] (07/26/23 01:18) Na Phos/Na Biphos Adult Enema (Na Phos/N (07/26/23 01:30) Ondansetron Oral Dissolve Tab (Ondanset (07/26/23 02:45) Ondansetron Injection (Ondansetron Inj (07/26/23 02:33) Na Phos/Na Biphos Adult Enema (Na Phos/N (07/26/23 03:15) Milk Of Magnesia Oral Susp (Milk Of Magn (07/26/23 03:15) Magnesium Citrate Oral Soln (Citrate Of (07/26/23 03:14) Medications Given in ED Current Medications Medications Dose Ordered Sig/Jesus Route Start Time Stop Time Status Last Admin Dose Admin Magnesium Citrate 300 ml STK-MED ONCE .ROUTE 07/26/23 03:14 07/26/23 03:18 DC 07/26/23 03:25 300 ML Ondansetron HCl 4 mg STK-MED ONCE .ROUTE 07/26/23 02:33 07/26/23 02:36 DC 07/26/23 02:36 4 MG Sodium Biphosphate/ Sodium Phosphate 1 ea ONCE ONCE VA 07/26/23 01:30 07/26/23 01:31 DC 07/26/23 02:09 1 EA Sodium Biphosphate/ Sodium Phosphate 1 ea ONCE ONCE VA 07/26/23 03:15 07/26/23 03:16 DC 07/26/23 03:25 1 EA Vital Signs/I&O 07/26/23 00:35 Temp 37.0 Pulse 73 Resp 18 B/P (MAP) 101/57 (72) Pulse Ox 96 O2 Delivery Room Air Blood Pressure Mean: 72 Progress Progress Note : Time: 02:15 Progress Note Patient seen and examined by me. Evaluation today includes physical exam and KUB. Pertinent physical exam findings - WDWN thin femal, NAD. Stable VS. Abd exam, hypoactive bowel sounds, tender to palpation in the LLQ with palpable s tool on exam. REctal - large amount of hard stool palpated high in the rectal vault - not amenable to disimpaction. Ddx based on h&P - constipation/fecal impaction Patient was provided a Fleets enema here in the ED after attempt at manual disimpaction. She tried for about 30min to pass stool on her own., I repeated the rectal exam and the stool had moved down quite a bit - was able to manually remove a little. Gave her a break and let her try again to pass stool on her own., She finally was able to and her cramping let up. I have recommended stool softeners, continued Miralax and Mag citrate vs Milk of magnesia. Patient has a soft abdomen- I do not have any concern for bowel obstruction as she is not vomiting, does not have large distended abdomen and is passing liquid stool around the hard stool. Reassurance provided to the patient. She is advised to follow up with her primary care doctor. All questions are sought and answered. Diagnostic Imaging Diagonstic Imaging: Xray Comments KUB - independently reviewed and interpreted by me - paucity of bowel gas, mode rate amount of stool noted LLQ Departure Impression Primary Impression: Constipation Qualified Codes: K59.00 - Constipation, unspecified Disposition: HOME, SELF-CARE Condition: Improved Departure-Patient Inst. Decision time for Depature: 02:19 Referrals: ELOISA GRAHAM MD (PCP/Family) Primary Care Physician Patient Instructions: Constipation, Adult ED Add. Discharge Instructions: Continue to drink plenty of fluids to stay well hydrated. Miralax twice a day for the next week, until you are consistently passing stool. You may try some dulcolax or magnesium citrate, available over the counter to also aid in passing stool. Please follow packaging instructions. I would consider stopping the Hyoscyamine as this is likely contributing to your constipation. Please call Dr Graham's office tomorrow for a follow up appointment. Return to the Emergency Department for any new, concerning or emergent complaint s. Work/School Note: Work Release Form Date Seen in the Emergency Department: Jul 26, 2023 Return to Work: Jul 27, 2023 Copy Copies To 1: ELOISA GRAHAM MD, KATHRYN M MD Jul 26, 2023 01:00
[2023-07-26] MEDS ORDERED: Sodium Phosphate/Sodium Biphosphate ADULT enema PR ONE ×2 (01:30→03:15)
[2023-07-26] MEDS ORDERED: ONDANSETRON INJECTION 4 MG/2 ML (SDV) ONE (02:33)
[2023-07-26] MEDS ORDERED: ONDANSETRON 4 MG ORAL DISSOLVE TABLET PO ONE (02:45)
[2023-07-26] MEDS ORDERED: MAGNESIUM CITRATE 300 ML BTL ONE (03:14)
[2023-07-26] MEDS ORDERED: MILK OF MAGNESIA 400 MG/5 ML 30 ML UDC PO ONE (03:15)
--- NOTE | 2023-07-26 07:27 | Diagnostic Imaging Report ---
INDICATION: Right upper quadrant pain with nausea and vomiting. FINDINGS: 2 right lateral decubitus films were obtained. Bowel gas pattern is nonspecific. There is no free air. Lung bases are clear. IMPRESSION: Nonspecific bowel gas pattern. Dictated by: Dictated on workstation # [id number]
== END 2023-07-26 03:30 | disposition home or self-care (01) ==
LOC: EDUNIT# 00:25 → ER 00:30
DX: K59.00 Constipation, unspecified (principal); K21.9 Gastro-esophageal reflux disease without esophagitis; Z87.19 Personal history of other diseases of the digestive system
CPT/HCPCS: 74018